=== PATIENT | female | born 1985 | race Caucasian/White ===

== ENCOUNTER 2017-06-14 19:42 | Inpatient (IN) | payer BC, MEDICAID ==
[~2017-06-14] VITALS: Ht 165.1 cm; Wt 80.4 kg
[2017-06-14 19:47] VITALS: BP 114/75
[2017-06-14] MEDS ORDERED: LABE10TAB PO (20:17)
[2017-06-14] MEDS ORDERED: ZYRT10TA2 PO (20:17)
[2017-06-14] MEDS ORDERED: PRENTAB40 PO (20:17)
[2017-06-14] MEDS: LR 1,000 ML IV SCH (21:13)
[2017-06-14 21:14] VITALS: BP 106/71
[2017-06-14] MEDS: LABETALOL 100 MG TAB PO SCH (21:15)
[2017-06-14 22:22] VITALS: BP 97/60
[2017-06-14 23:22] VITALS: BP 103/61
[2017-06-14] MEDS ORDERED: D5W 50ML MINI-BAG PLUS As Ordered ONE (23:55)
[2017-06-15] VITALS (20 sets, daily range): BP systolic 94–133; BP diastolic 52–85
[2017-06-15] MEDS ORDERED: BETAMETHASONE SOLUSPAN 6MG/ML INJ 5ML (J0702) IM ONE (02:00)
[2017-06-15] MEDS: AMPICILLIN SOD 1 GM in D5W MINI-BAG PLUS 50 ML IV SCH ×5 (04:11→12:03)
[2017-06-15] MEDS: miSOPROStol 50 MCG 1/2 TAB (S0191) PO SCH ×2 (06:59→11:09)
[2017-06-15] MEDS: LR 1,000 ML IV SCH (07:49)
[2017-06-15 09:01] LABS: MEAN CORPUSCULAR HEMOGLOBIN 30.1 pg (27.0-33.0); MEAN CORPUSCULAR HGB CONC 33.5 g/dl (32.0-36.5); MEAN CORPUSCULAR VOLUME 89.7 fl (80.0-96.0); PLATELET COUNT, AUTOMATED 218 10^3/uL (150-450); RED CELL DISTRIBUTION WIDTH 13.7 % (11.5-14.5); WHITE BLOOD COUNT 24.3 10^3/uL (4.0-10.0)
[2017-06-15 09:08] LABS: ADD MANUAL DIFFER YES; DIFF SLIDE NUMBER 141
[2017-06-15 09:39] LABS: BANDS 3 % (< 11)
[2017-06-15] MEDS: LABETALOL 100 MG TAB PO SCH ×2 (09:52→20:41)
[2017-06-15] MEDS ORDERED: AMPICILLIN SOD 1 GM in D5W 50 ML IV SCH ×2 (16:15→16:30)
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
[2017-06-15] MEDS ORDERED: PROMETHAZINE INJ 25 MG/ML VIAL (J2550) IV ONE (16:45)
[2017-06-15] MEDS ORDERED: OXYTOCIN DRIP 30 UNITS in APPROPRIATE DILUENT 1 EA IV SCH (16:45)
[2017-06-15] MEDS ORDERED: BUTORPHANOL 2 MG/ML INJ (J0595) IV ONE (16:45)
--- NOTE | 2017-06-15 16:53 | IPNPDOC ---
Text Note Date of Service The patient was seen on 06/15/17 T 1640. NOTE SUBJECTIVE: Patient reports she is uncomfortable with contractions. Desires IV pain medication. Does not want epidural. OBJECTIVE: FHR: 130, moderate variability, positive accelerations, no decelerations. Contractions are every 1 to 4 minutes. SVE: 2-3/100/-1. Vital signs: see below. ASSESSMENT: IUP 35.5 wks gestation, PPROM, active labor PLAN: Pitocin ordered after consent from patient and . Reviewed effects of Pitocin. Stadol and phenergan ordered and education done on medication with patient. Anticipate cervical change and . VS,Fishbone, I+O VS, Fishbone, I+O Laboratory Tests 06/15/17 08:37 Red Blood Count 3.99 L, Mean Corpuscular Volume 89.7, Mean Corpuscular Hemoglobin 30.1, Mean Corpuscular Hemoglobin Concent 33.5, Red Cell Distribution Width 13.7, Neutrophils (%) (Auto) , Neutrophils # (Auto) Vital Signs Date Time Temp Pulse Resp B/P (MAP) Pulse Ox O2 Delivery O2 Flow Rate FiO2 06/15/17 15:02 98.3 86 18 111/63 (79) I&O- Last 24 Hours up to 6 AM 06/16/17 06:00 Intake Total 100 ml Balance 100 ml BERTHA HIGGINS CNM Jun 15, 2017 16:53
[2017-06-15] MEDS ORDERED: DIBUCAINE 1% OINTMENT 30GM TOP PRN (19:45)
[2017-06-15] MEDS ORDERED: METHYLERGONOVINE MALEATE 0.2 MG TAB PO PRN (19:45)
[2017-06-15] MEDS ORDERED: ACETAMINOPHEN 500 MG TAB PO PRN (19:45)
[2017-06-15] MEDS ORDERED: METHYLERGONOVINE MALEATE 0.2 MG/ML VIAL (J2210) IM PRN (19:45)
[2017-06-15] MEDS ORDERED: RHOGAM 300 MCG (1500 IU) INJ (J2790) IM SCH (19:45)
[2017-06-15] MEDS ORDERED: DOCUSATE SODIUM 100 MG CAP PO PRN (19:45)
[2017-06-15] MEDS ORDERED: OXYTOCIN INJ 10 UNITS/ML VIAL (J2590) IM ONE (19:45)
[2017-06-15] MEDS ORDERED: MEASLES,MUMPS,RUBELLA VACCINE INJ (MMR-II) (90707) SC SCH (19:45)
[2017-06-15] MEDS ORDERED: ANUSOL HC CREAM 30GM TOP PRN (19:45)
--- NOTE | 2017-06-15 19:54 | DNPDOC ---
[facility] Delivery Note Delivery Note DATE OF DELIVERY: 06/15/17 at 1857. PROCEDURE: Spontaneous vaginal delivery. PROVIDER: Bertha Horne CNM, SOHEILA ANESTHESIA: none. ESTIMATED BLOOD LOSS: 500 mL. FINDINGS: 5 pounds 11 ounces, 2580 grams, male infant, Score 9/9. DELIVERY SUMMARY: Patient is a 31 year old female who is now a at 35.5 weeks gestation who presented to L&D as a transfer from [facility] due to PPROM on 06/14/17 at 0230. She was beta complete and had GBS prophylaxis. Her labor was induced after she was beta complete with 2 doses of cytotec and 6 cc of Pitocin. She received stadol and phenergan for pain management. . She progressed to fully dilated at 1850 and pushed to a living male at 1857 in the YAMILA position with restitution to ROT. There was a right compound hand noted. The anterior shoulder delivered spontaneously and the corpus immediately followed. The baby was placed on the abdomen active and crying. Dr. Wan was called at 1850 for delivery and presented right after delivery. The cord was clamped x2 after 1 minute and cut by the FOB. There was a 3 vessel cord noted. The placenta delivered spontaneously and intact at 1904. Uterine hemostasis achieved by fundal massage and 10 units of IM Pitocin due to patient's IV infiltrating with the start of rapid infusion of the Pitocin. The vagina and perineum were inspected and found to have bilateral labial abrasions that were not repaired and not actively bleeding. The patient desires to breastfeed and they are naming their son "Rocky." Mom in stable condition and baby was admitted to the NICU for prematurity. BERTHA HORNE CNM Jun 15, 2017 19:54
[2017-06-15] MEDS: IBUPROFEN 800 MG TAB PO PRN (20:41)
[2017-06-16 06:23] VITALS: BP 123/70
[2017-06-16] MEDS: PRENATAL VITAMINS CHEWABLE TABLET PO SCH (09:20)
[2017-06-16] MEDS: LABETALOL 100 MG TAB PO SCH ×2 (09:20→21:22)
[2017-06-16 18:16] VITALS: BP 122/79
[2017-06-16] MEDS: IBUPROFEN 800 MG TAB PO PRN (21:22)
[2017-06-17 06:14] VITALS: BP 111/64
[2017-06-17] MEDS: IBUPROFEN 800 MG TAB PO PRN (08:04)
[2017-06-17] MEDS ORDERED: ACET50TA PO (08:50)
[2017-06-17] MEDS ORDERED: IBUP-1114 PO (08:50)
[2017-06-17] MEDS: PRENATAL VITAMINS CHEWABLE TABLET PO SCH (10:49)
[2017-06-17 10:50] VITALS: BP 119/75
[2017-06-17] MEDS: LABETALOL 100 MG TAB PO SCH (10:50)
== END 2017-06-17 15:10 | disposition home or self-care (01) | DRG 560 ==
LOC: M LDI 19:42 → M OBS 06-15 20:55
PROVIDERS: ADMIT Obstetrics & Gynecology; ATTEND Obstetrics & Gynecology
PROC: 10E0XZZ Delivery of Products of Conception, External Approach (ICD-10-PCS; principal; 2017-06-15)
DX: O42.013 Preterm premature rupture of membranes, onset of labor within 24 hours of rupture, third trimester (principal); O60.14X0 Preterm labor third trimester with preterm delivery third trimester, not applicable or unspecified; O64.5XX0 Obstructed labor due to compound presentation, not applicable or unspecified; O99.344 Other mental disorders complicating childbirth; Z37.0 Single live birth; Z3A.35 35 weeks gestation of pregnancy; F32.9 Major depressive disorder, single episode, unspecified; F41.9 Anxiety disorder, unspecified; F43.10 Post-traumatic stress disorder, unspecified; F17.200 Nicotine dependence, unspecified, uncomplicated; Z88.1 Allergy status to other antibiotic agents; Z79.899 Other long term (current) drug therapy; O99.334 Smoking (tobacco) complicating childbirth